=== PATIENT | male | born 1940 | race African-American/Black ===

== ENCOUNTER 2020-05-26 07:43 | Inpatient (IN) | payer OTHER ==
[~2020-05-26] VITALS: Ht 172.7 cm; Wt 79.8 kg
[2020-05-26] MEDS ORDERED: SODIUM CHLORIDE 0.9% 1,000 ML IV ONE (09:15)
[2020-05-26 09:37] LABS: CHLORIDE 110 mEq/L (98-107)
[2020-05-26 09:38] LABS: PROTHROMBIN TIME 10.3 sec (9.6-11.0)
[2020-05-26 09:58] LABS: HEMATOCRIT. 34.2 % (42.0-52.0); HEMOGLOBIN. 10.3 g/dL (14.0-18.0); MEAN CORPUSCULAR HEMOGLOBIN 22.7 pg (28.0-32.0); MEAN CORPUSCULAR VOLUME 75.5 fL (80.0-94.0); MEAN PLATELET VOLUME 6.6 fl (7.4-10.4); PLATELET 214 x1000/uL (130-400); RED BLOOD CELL COUNT 4.53 mill/uL (4.7-6.1); RED CELL DISTRIBUTION WIDTH 25.3 % (11.6-14.6)
[2020-05-26 10:53] LABS: NUCLEATED RED BLOOD CELLS 1 /100 WBC; PLATELET ESTIMATE NORMAL
[2020-05-26] MEDS ORDERED: CEFTRIAXONE 1 G PREMIX 50 ML IV NR (11:00)
[2020-05-26 11:07] LABS: PROTHROMBIN TIME 10.4 sec (9.6-11.0)
[2020-05-26] MEDS ORDERED: VANCOMYCIN 1 G PREMIX 200 ML IV NR (11:30)
[2020-05-26] MEDS ORDERED: SODIUM CHLORIDE 0.9% 1000ML BAG (SEPSIS BOLUS) IV NR (11:30)
[2020-05-26] MEDS ORDERED: NA PHOS,M-B/NA PHOS,DI-BA ENEMA 118ML PR PRN (15:30)
[2020-05-26] MEDS: SODIUM CHLORIDE 0.9% 1,000 ML IV SCH (15:30)
[2020-05-26] MEDS ORDERED: CLONIDINE 0.1MG TABLET PO PRN (15:30)
[2020-05-26] MEDS ORDERED: MAGNESIUM/ALUMINUM HYDROXIDE/SIMETHICONE 30ML UDC PO PRN (15:30)
[2020-05-26] MEDS ORDERED: ONDANSETRON HCL 4MG/2ML INJ IV PRN (15:30)
[2020-05-26 15:57] LABS: CLARITY URINE TURBID (CLEAR); COLOR URINE RED (YELLOW); KETONES URINE 1+ (NEGATIVE); LEUKOCYTE ESTERASE URINE 3+ (NEGATIVE); NITRITE URINE POSITIVE (NEGATIVE); OCCULT BLOOD URINE 3+ (NEGATIVE); PROTEIN URINE 3+ (NEGATIVE); SPECIFIC GRAVITY URINE 1.006 (1.005-1.030); UROBILINOGEN URINE 0.2 E.U./dL (0.2-1.0)
[2020-05-26] MEDS: LEVOFLOXACIN 500MG PREMIX 100 ML IV SCH (16:07)
[2020-05-27 01:00] VITALS: BP 140/80
[2020-05-27] MEDS: VANCOMYCIN 750 MG PREMIX 150 ML IV SCH ×3 (03:49→22:36)
[2020-05-27] MEDS: SODIUM CHLORIDE 0.9% 1,000 ML IV SCH ×2 (05:53→17:15)
[2020-05-27 07:52] VITALS: BP 134/75
[2020-05-27 08:00] LABS: BASOPHILS % 0.2 % (0.0-2.0); EOSINOPHILS % 0.7 % (0.0-5.0); HEMATOCRIT. 29.1 % (42.0-52.0); HEMOGLOBIN. 8.9 g/dL (14.0-18.0); LYMPHOCYTES % 10.8 % (20.0-50.0); MEAN CORPUSCULAR HEMOGLOBIN 22.7 pg (28.0-32.0); MEAN CORPUSCULAR VOLUME 74.5 fL (80.0-94.0); MEAN PLATELET VOLUME 8.3 fl (7.4-10.4); MONOCYTES % 7.3 % (2.0-8.0); PLATELET 180 x1000/uL (130-400); RED CELL DISTRIBUTION WIDTH 26.2 % (11.6-14.6)
[2020-05-27 08:16] LABS: CHLORIDE 108 mEq/L (98-107)
[2020-05-27 08:23] LABS: LDL CHOLESTEROL 75 mg/dL (5-100)
[2020-05-27 08:25] LABS: HDL CHOLESTEROL 80 mg/dL (40-59)
[2020-05-27 11:40] VITALS: BP 132/72
[2020-05-27 15:40] VITALS: BP 120/65
[2020-05-27] MEDS: LEVOFLOXACIN 500MG PREMIX 100 ML IV SCH (17:14)
[2020-05-27 20:00] VITALS: BP 144/84
[2020-05-28] VITALS (24 sets, daily range): BP systolic 112–143; BP diastolic 59–102
[2020-05-28 07:18] LABS: CHLORIDE 109 mEq/L (98-107)
[2020-05-28 08:15] LABS: BASOPHILS % 0.5 % (0.0-2.0); EOSINOPHILS % 0.9 % (0.0-5.0); HEMATOCRIT. 29.4 % (42.0-52.0); HEMOGLOBIN. 9.1 g/dL (14.0-18.0); LYMPHOCYTES % 11.7 % (20.0-50.0); MEAN CORPUSCULAR HEMOGLOBIN 23.3 pg (28.0-32.0); MEAN CORPUSCULAR VOLUME 75.4 fL (80.0-94.0); MEAN PLATELET VOLUME 7.3 fl (7.4-10.4); MONOCYTES % 8.8 % (2.0-8.0); NEUTROPHILS % 78.1 % (40.0-76.0); PLATELET 150 x1000/uL (130-400); RED BLOOD CELL COUNT 3.89 mill/uL (4.7-6.1)
[2020-05-28 08:18] LABS: CHLORIDE 109 mEq/L (98-107)
[2020-05-28] MEDS: VANCOMYCIN 750 MG PREMIX 150 ML IV SCH (10:11)
[2020-05-28] MEDS: SODIUM CHLORIDE 0.9% 1,000 ML IV SCH (10:13)
[2020-05-28 15:10] LABS: PLATELET ESTIMATE NORMAL
[2020-05-28] MEDS ORDERED: LEVOFLOXACIN 500MG PREMIX 100 ML IV SCH (17:30)
== END 2020-05-28 20:10 | disposition short-term general hospital (02) | DRG 872 ==
LOC: ER 07:56 → 5EST 14:48 → ENRESERV 23:00
PROVIDERS: ADMIT Family Medicine; ATTEND Family Medicine
DX: A41.9 Sepsis, unspecified organism (principal); E44.0 Moderate protein-calorie malnutrition; N30.01 Acute cystitis with hematuria; E87.2 Acidosis; C67.9 Malignant neoplasm of bladder, unspecified; E11.9 Type 2 diabetes mellitus without complications; E66.9 Obesity, unspecified; R65.20 Severe sepsis without septic shock; F03.90 Unspecified dementia, unspecified severity, without behavioral disturbance, psychotic disturbance, mood disturbance, and anxiety; M19.011 Primary osteoarthritis, right shoulder; D50.9 Iron deficiency anemia, unspecified; M19.012 Primary osteoarthritis, left shoulder; Z20.822 Contact with and (suspected) exposure to COVID-19; Z68.30 Body mass index [BMI] 30.0-30.9, adult; Z85.51 Personal history of malignant neoplasm of bladder; Z93.6 Other artificial openings of urinary tract status
CPT/HCPCS: 36415; 71045; 80048; 80053; 80061; 80202; 81003; 83605; 84145; 85025; 87426; 93005; 99291; J0696; J1956; J3370; J7030; A4315